=== PATIENT | female | born 1990 | race Asian ===

== ENCOUNTER 2019-11-10 09:50 | Inpatient (IN) | payer MEDICAID, OTHER ==
[~2019-11-10] VITALS: Ht 165.1 cm; Wt 65.1 kg
[2019-11-10 09:41] VITALS: BP_SYST 114
[2019-11-10 10:31] VITALS: BP 114/67
[2019-11-10 11:01] LABS: MICROSCOPIC NOT IND
[2019-11-10] MEDS: BETAMETHASONE 6 MG/ML, 5ML IM SCH (11:45)
[2019-11-10] MEDS ORDERED: BETAMETHASONE 6 MG/ML, 5ML IM ONE (11:54)
[2019-11-10] MEDS ORDERED: LACTATED RINGERS 1,000 ML IV PRN (11:59)
[2019-11-10] MEDS ORDERED: AZITHROMYCIN 500 MG TABLET PO ONE (12:00)
[2019-11-10 12:23] LABS: BASOPHILS # (AUTO) 0.02 x10^3/uL (0-0.1); BASOPHILS % (AUTO) 0 % (0-1); EOSINOPHILS # (AUTO) 0.06 x10^3/uL (0-0.4); EOSINOPHILS % (AUTO) 1 % (1-7); LYMPHOCYTES # (AUTO) 1.77 x10^3/uL (1-3.4); LYMPHOCYTES % (AUTO) 15 % (22-44); MD NO; MEAN CORPUSCULAR HEMOGLOBIN 31.7 pg (27.0-34.8); MEAN CORPUSCULAR HGB CONC 32.7 g/dL (32.4-35.8); MEAN CORPUSCULAR VOLUME 97.1 fL (80-100); MEAN PLATELET VOLUME 8.5 fL (7.4-10.4); MONOCYTES # (AUTO) 0.63 x10^3/uL (0.2-0.8); MONOCYTES % (AUTO) 5 % (2-9); NEUTROPHILS # (AUTO) 9.21 x10^3/uL (1.8-6.8); NEUTROPHILS % (AUTO) 79 % (42-75); PLATELET COUNT 194 x10^3/uL (130-400); RED BLOOD COUNT 4.28 x10^6/uL (3.82-5.3); RED CELL DISTRIBUTION WIDTH 13.4 % (9.6-15.2)
[2019-11-10] MEDS ORDERED: AZITHROMYCIN 500 MG TABLET ONE (13:48)
[2019-11-10] MEDS: AMPICILLIN 2 GM in SODIUM CHLORIDE 0.9% 100 ML IV SCH ×2 (13:55→20:08)
[2019-11-10 21:35] LABS: CLOSTRIDIUM DIFFICILE ANTIGEN NEGATIVE; CLOSTRIDIUM DIFFICILE TOXIN NEGATIVE (Negative)
[2019-11-11] MEDS: AMPICILLIN 2 GM in SODIUM CHLORIDE 0.9% 100 ML IV SCH ×4 (04:41→22:04)
[2019-11-11 11:20] VITALS: BP 93/55
[2019-11-11] MEDS: BETAMETHASONE 6 MG/ML, 5ML IM SCH (11:21)
[2019-11-11 16:30] VITALS: BP 118/69
[2019-11-11] MEDS ORDERED: PREN1TAB60 PO (17:46)
[2019-11-12] MEDS: AMPICILLIN 2 GM in SODIUM CHLORIDE 0.9% 100 ML IV SCH ×3 (04:03→16:00)
[2019-11-12] MEDS ORDERED: DOCUSATE 100 MG CAPSULE PO PRN (07:30)
[2019-11-12] MEDS ORDERED: PRENATAL VIT/IRON/FA 1 EACH TABLET ONE (07:32)
[2019-11-12] MEDS ORDERED: PRENATAL VIT/IRON/FA 1 EACH TABLET PO SCH (09:00)
[2019-11-12] MEDS ORDERED: AMOXICILLIN/CLAV 875-125MG TABLET PO SCH (12:00)
[2019-11-12] MEDS: AMOXICILLIN/CLAV 875-125MG TABLET PO SCH (20:49)
[2019-11-12] MEDS ORDERED: ONDANSETRON 2MG/ML, 2ML ONE (22:54)
[2019-11-12] MEDS ORDERED: ONDANSETRON 2MG/ML, 2ML IVPush PRN (23:00)
[2019-11-13] MEDS ORDERED: OXYTOCIN 30U/ 0.9% NaCL 500ML 500 ML ONE (01:20)
[2019-11-13] MEDS ORDERED: FENTANYL/BUPIV./NS/PF 250 ML EPIDCONT ONE (01:22)
[2019-11-13] MEDS ORDERED: ACETAMINOPHEN 500 MG TABLET PO PRN (01:40)
[2019-11-13] MEDS ORDERED: ACETAMINOPHEN 325 MG TABLET PO PRN ×3 (01:41→09:00)
[2019-11-13] MEDS ORDERED: FENTANYL PF 100 MCG/2ML ONE (01:56)
[2019-11-13 02:15] LABS: MEAN CORPUSCULAR HEMOGLOBIN 32.1 pg (27.0-34.8); MEAN CORPUSCULAR HGB CONC 33.9 g/dL (32.4-35.8); MEAN CORPUSCULAR VOLUME 94.8 fL (80-100); MEAN PLATELET VOLUME 8.4 fL (7.4-10.4); PLATELET COUNT 195 x10^3/uL (130-400); RED BLOOD COUNT 3.93 x10^6/uL (3.82-5.3); RED CELL DISTRIBUTION WIDTH 12.8 % (9.6-15.2)
[2019-11-13] MEDS ORDERED: BUPIVACAINE 0.25% ONE (02:22)
[2019-11-13 02:47] LABS: BASOPHILS % (AUTO) 1 % (0-1); EOSINOPHILS # (AUTO) 0.01 x10^3/uL (0-0.4); EOSINOPHILS % (AUTO) 0 % (1-7); LYMPHOCYTES # (AUTO) 1.74 x10^3/uL (1-3.4); LYMPHOCYTES % (AUTO) 9 % (22-44); MD SCAN; MONOCYTES # (AUTO) 0.53 x10^3/uL (0.2-0.8); MONOCYTES % (AUTO) 3 % (2-9); NEUTROPHILS # (AUTO) 16.13 x10^3/uL (1.8-6.8); NEUTROPHILS % (AUTO) 87 % (42-75)
[2019-11-13] MEDS: LACTATED RINGERS 1,000 ML IV SCH ×2 (03:05→11:05)
[2019-11-13] MEDS ORDERED: FENTANYL/BUPIV./NS/PF 250 ML EPIDCONT SCH (03:05)
[2019-11-13] MEDS ORDERED: EPHEDRINE 50 MG/ML, 1ML ONE (03:29)
[2019-11-13] MEDS ORDERED: NALOXONE 0.4 MG/ML, 1ML IVPush PRN (03:30)
[2019-11-13] MEDS ORDERED: LACTATED RINGERS 1,000 ML IVBOLUS PRN (03:30)
[2019-11-13] MEDS ORDERED: EPHEDRINE 50 MG/ML, 1ML IVPush PRN (03:30)
[2019-11-13] MEDS: PRENATAL VIT/IRON/FA 1 EACH TABLET PO SCH (09:00)
[2019-11-13] MEDS ORDERED: RHOGAM FROM BLOOD BANK 1 NOTE EA IM/IV ONE (09:00)
[2019-11-13] MEDS ORDERED: OXYcodone/APAP 5/325MG TABLET PO PRN ×2 (09:00)
[2019-11-13] MEDS ORDERED: MISOPROSTOL 200 MCG TABLET PR PRN (09:00)
[2019-11-13] MEDS ORDERED: PRENATAL VIT/IRON/FA 1 EACH TABLET HOMEMEDPO SCH (09:00)
[2019-11-13] MEDS ORDERED: ONDANSETRON 2MG/ML, 2ML IV PRN (09:00)
[2019-11-13] MEDS ORDERED: DOCUSATE 100 MG CAPSULE PO PRN (09:00)
[2019-11-13] MEDS ORDERED: SIMETHICONE 80 MG CHEW TAB PO PRN (09:00)
[2019-11-13] MEDS: AMOXICILLIN/CLAV 875-125MG TABLET PO SCH (09:00)
[2019-11-13] MEDS ORDERED: DIPH,PERTUSS(ACELL),TET VAC/PF NC IM-VACC PRN (09:00)
[2019-11-13] MEDS ORDERED: MAGNESIUM HYDROXIDE 8%, 30ML UDC PO PRN (09:00)
[2019-11-13] MEDS ORDERED: NEWBORN KIT ONE (09:44)
[2019-11-13] MEDS: OXYTOCIN 30U/ 0.9% NaCL 500ML 500 ML IV SCH ×2 (10:00→18:57)
[2019-11-13 12:50] VITALS: BP 123/65
[2019-11-13] MEDS: IBUPROFEN 600 MG TABLET PO PRN (13:02)
[2019-11-13 16:15] VITALS: BP 118/72
[2019-11-13 20:00] VITALS: BP 97/61
[2019-11-13 20:11] LABS: MEAN CORPUSCULAR HEMOGLOBIN 31.9 pg (27.0-34.8); MEAN CORPUSCULAR HGB CONC 33.1 g/dL (32.4-35.8); MEAN CORPUSCULAR VOLUME 96.6 fL (80-100); MEAN PLATELET VOLUME 8.1 fL (7.4-10.4); PLATELET COUNT 178 x10^3/uL (130-400); RED BLOOD COUNT 3.64 x10^6/uL (3.82-5.3); RED CELL DISTRIBUTION WIDTH 13.4 % (9.6-15.2)
[2019-11-13 20:28] LABS: BASOPHILS # (AUTO) 0.01 x10^3/uL (0-0.1); BASOPHILS % (AUTO) 0 % (0-1); EOSINOPHILS # (AUTO) 0.02 x10^3/uL (0-0.4); EOSINOPHILS % (AUTO) 0 % (1-7); LYMPHOCYTES % (AUTO) 12 % (22-44); MD SCAN; MONOCYTES # (AUTO) 0.29 x10^3/uL (0.2-0.8); MONOCYTES % (AUTO) 2 % (2-9); NEUTROPHILS # (AUTO) 13.12 x10^3/uL (1.8-6.8); NEUTROPHILS % (AUTO) 86 % (42-75)
[2019-11-14 00:25] VITALS: BP 101/67
[2019-11-14 04:45] VITALS: BP 98/60
[2019-11-14] MEDS: IBUPROFEN 600 MG TABLET PO PRN ×3 (04:55→17:53)
[2019-11-14] MEDS: OXYTOCIN 30U/ 0.9% NaCL 500ML 500 ML IV SCH (04:57)
[2019-11-14] MEDS: PRENATAL VIT/IRON/FA 1 EACH TABLET PO SCH (09:00)
[2019-11-14 20:06] VITALS: BP 109/72
[2019-11-15 07:35] VITALS: BP 115/78
[2019-11-15] MEDS: PRENATAL VIT/IRON/FA 1 EACH TABLET PO SCH (09:00)
[2019-11-15] MEDS ORDERED: IBUP-1222 PO (14:47)
== END 2019-11-15 20:30 | disposition home or self-care (01) | DRG 807 ==
LOC: LDOP 09:50 → EDIP 11:41 → LDIP 11:50 → 2NW 11-13 12:29
PROVIDERS: ADMIT Obstetrics & Gynecology; ATTEND Obstetrics & Gynecology
PROC: 10E0XZZ Delivery of Products of Conception, External Approach (ICD-10-PCS; principal; 2019-11-13)
PROC: 3E0R3BZ Introduction of Anesthetic Agent into Spinal Canal, Percutaneous Approach (ICD-10-PCS; 2019-11-13)
PROC: 00HU33Z Insertion of Infusion Device into Spinal Canal, Percutaneous Approach (ICD-10-PCS; 2019-11-13)
DX: O42.913 Preterm premature rupture of membranes, unspecified as to length of time between rupture and onset of labor, third trimester (principal); Z37.0 Single live birth; D35.2 Benign neoplasm of pituitary gland; Z3A.32 32 weeks gestation of pregnancy; Z03.818 Encounter for observation for suspected exposure to other biological agents ruled out; O75.89 Other specified complications of labor and delivery
CPT/HCPCS: 36415; 76815; 81003; 82803; 84112; 85025; 86592; 86850; 86900; 87070; 87075; 87081; 87086; 87205; 87324; 87635; 88307; G0378; J0290; J0702; J2590; J7120